=== PATIENT | male | born 1965 | race Hispanic/Latino ===

== ENCOUNTER 2023-08-27 05:59 | Day surgery (SDC) | payer OTHER ==
[2023-08-27] VITALS (13 sets, daily range): BP systolic 104–127; BP diastolic 73–86; PULSE 55–76; RESP 16
[~2023-08-27] VITALS: Ht 167.6 cm; Wt 72.6 kg
[2023-08-27] MEDS: 0.9%NACL 1000ML 1,000 ML IV ONE (06:47)
[2023-08-27] MEDS ORDERED: PROPOFOL 10 MG/ML 20ML VIAL IV ONE (07:11)
== END 2023-08-27 08:40 | disposition home or self-care (01) ==
LOC: DAH 05:59 → ENDO 05:59
PROVIDERS: ATTEND Internal Medicine
DX: Z12.11 Encounter for screening for malignant neoplasm of colon (principal); D12.4 Benign neoplasm of descending colon; K29.50 Unspecified chronic gastritis without bleeding; K21.00 Gastro-esophageal reflux disease with esophagitis, without bleeding; K31.89 Other diseases of stomach and duodenum; K64.0 First degree hemorrhoids; I10 Essential (primary) hypertension; E78.00 Pure hypercholesterolemia, unspecified; Z88.8 Allergy status to other drugs, medicaments and biological substances; Z79.899 Other long term (current) drug therapy
CPT/HCPCS: 45380; 45385; 43239; J7030; J2704; A4620; A4215 ×2; A4223; A4222; A4221; A4663; A4606; J3490